=== PATIENT | female | born 1990 | race Two or more races ===

== ENCOUNTER 2022-08-16 11:21 | Emergency (ER) | payer OTHER ==
[~2022-08-16] VITALS: Ht 162.6 cm; Wt 52.6 kg
[2022-08-16] MEDS ORDERED: MORPHINE SULFATE INJ 2 MG/ML DISP.SYRIN IV ONE ×3 (12:00→20:30)
[2022-08-16] MEDS ORDERED: KETOROLAC TROMETHAMINE INJ 30 MG/ML VIAL IV ONE (12:00)
[2022-08-16] MEDS ORDERED: IV NS 0.9% 1,000 ML BAG IV ONE (12:00)
--- NOTE | 2022-08-16 12:20 | NUR ---
IV LINE ESTABLISHED ON RAC #20, BLOOD DRAWN AND COLLECTED BY PHLEB AT BEDSIDE
[2022-08-16] MEDS ORDERED: KETOROLAC TROMETHAMINE 15 MG/ML VIAL ONE (12:22)
--- NOTE | 2022-08-16 12:24 | NUR ---
PT STATES THAT SHE IS NOT
--- NOTE | 2022-08-16 12:33 | NUR ---
RAPID STREP SWAB OBTAINED AND SENT TO LAB
--- NOTE | 2022-08-16 12:45 | NUR ---
PT UNABLE TO PROVIDE URINE AT THIS TIME, SPECIMEN CUP PROVIDED TO PT
[2022-08-16 12:52] LABS: CALCIUM, SERUM 8.6 mg/dL (8.5-10.1); CARBON DIOXIDE 29 mmol/L (21-32); CHLORIDE 102 mmol/L (98-107); CREATININE 0.7 mg/dL (0.6-1.3); GLUCOSE 133 mg/dL (74-106); POTASSIUM 3.2 mmol/L (3.5-5.1); SODIUM SERUM 134 mmol/L (136-145); UREA NITROGEN, BLOOD 3 mg/dL (7-18)
[2022-08-16 13:15] LABS: BASOPHILS % (AUTO) 0.1 % (0.0-2.0); HEMATOCRIT 35 % (33-45); HEMOGLOBIN 11.9 g/dL (11.5-14.8); LYMPHOCYTES # (AUTO) 1.8 K/uL (0.8-4.8); LYMPHOCYTES % (AUTO) 11.1 % (20.0-44.0); MEAN CORPUSCULAR HGB CONC 34 g/dl (31.0-36.0); MEAN CORPUSCULAR VOLUME 94 fL (82-100); MONOCYTES # (AUTO) 2.1 K/uL (0.1-1.30); MONOCYTES % (AUTO) 13.2 % (2.0-12.0); NEUTROPHILS % (AUTO) 75.6 % (43.0-81.0); PLATELET COUNT (AUTO) 222 K/uL (150-450); RED BLOOD CELL COUNT(AUTO) 3.75 MIL/uL (4.0-5.2); WHITE BLOOD COUNT (AUTO) 15.8 K/uL (4.3-11.0)
[2022-08-16] MEDS ORDERED: HYDROCODONE/APAP 5/325MG TABLET ONE (13:22)
[2022-08-16] MEDS ORDERED: POTASSIUM CHLORIDE 20 MEQ TAB.PRT.SR PO ONE ×2 (13:23→13:30)
[2022-08-16] MEDS ORDERED: HYDROCODONE/APAP 5/325MG TABLET PO ONE (13:30)
--- NOTE | 2022-08-16 15:10 | NUR ---
URINE SAMPLE COLLECTED AND SENT TO LAB
--- NOTE | 2022-08-16 17:49 | NUR ---
FOLLOWED UP RESULT OF CTA W/ RADIOLOGY
[2022-08-16] MEDS ORDERED: AMOX-430 PO (18:07)
[2022-08-16] MEDS ORDERED: DOXYCYCLINE 100 MG in IV D5W 100 ML IV ONE (18:30)
[2022-08-16] MEDS ORDERED: IV NS 0.9% 1,000 ML IV ONE (18:30)
[2022-08-16] MEDS ORDERED: CEFTRIAXONE 1GM BAG (ER ONLY) 1 GM/50 ML PIGGYBACK IV ONE (18:30)
[2022-08-16] MEDS ORDERED: MORPHINE SULFATE INJ 4 MG/ML DISP.SYRIN ONE (18:38)
[2022-08-16] MEDS ORDERED: IOHEXOL-350 100 ML VIAL IV ONE (19:09)
[2022-08-16] MEDS ORDERED: IV NS 0.9% 250 ML IV ONE (19:09)
[2022-08-16] MEDS ORDERED: CT SWABBABLE VALVE TRANS SET 1 EA INFUS.SET MC ONE (19:09)
--- NOTE | 2022-08-16 19:32 | NUR ---
COVID ANTIGEN AND INFLUENZA SWAB COLLECTED AND SENT TO LAB
--- NOTE | 2022-08-16 20:00 | NUR ---
PT STILL COMPLAINING OF CHEST PAIN; DR IMANI ARENAS AWARE. MORPHINE 4MG LAST ADMIN 1899
[2022-08-16] MEDS ORDERED: MORPHINE SULFATE INJ 2 MG/ML DISP.SYRIN ONE (20:23)
--- NOTE | 2022-08-16 20:59 | NUR ---
IV removed. Catheter intact and site benign. Pressure and 4x4 applied to site. No bleeding noted.
--- NOTE | 2022-08-16 20:59 | NUR ---
Patient discharged to home in stable condition. Written and verbal after care instructions given. Patient verbalizes understanding of instruction.
[2022-08-16 22:57] VITALS: BP 118/66
== END 2022-08-16 22:58 | disposition home or self-care (01) ==
LOC: ER 11:38
DX: J18.9 Pneumonia, unspecified organism (principal); R07.1 Chest pain on breathing; J91.8 Pleural effusion in other conditions classified elsewhere; Z20.822 Contact with and (suspected) exposure to COVID-19; E87.6 Hypokalemia
CPT/HCPCS: 99285; 96365; 71275; 71045; 96375; 96361; 87426; 96368; 93005; 87804; 87081; 85025; 80048; 85378; 84703; 36415; 87880; 84484; 96376; J3490; J2270 ×2; J7060; J7030 ×2; J7050; J0696; Q9967; J1885; C9803; 86403-TC